=== PATIENT | male | born 1945 | race Two or more races ===

== ENCOUNTER 2022-08-13 17:17 | Inpatient (IN) | payer OTHER ==
[~2022-08-13] VITALS: Ht 162.6 cm; Wt 78.0 kg
[2022-08-13] MEDS ORDERED: ACYCLOVIR SOD 50MG/ML 800 MG in SODIUM CHL 0.9% 250 ML IV ONE ×2 (19:00→19:45)
[2022-08-13] MEDS ORDERED: MORPHINE SULFATE 4 MG/ML SYR/VIAL IV ONE (19:15)
[2022-08-13 19:37] LABS: Hematocrit 47.6 % (41.0-53.0); Hemoglobin 16.1 g/dL (13.5-17.5); Mean Corpuscular Hemoglobin 32.5 pg (28.0-32.0); Mean Corpuscular Hgb Conc. 33.9 g/dL (32.0-36.0); Mean Corpuscular Volume 95.7 fL (80.0-100.0); Red Blood Cells 4.97 10^6/uL (4.5-5.90); Red Cell Distribution Width 14.4 % (11.8-14.3); White Blood Cell 5.7 10^3/uL (4.4-10.8)
[2022-08-13 19:42] LABS: Basophils % (manual) 0 (0.0-2.0); Blast Cells 0; Metamyelocytes % 0; Myelocytes % 0; Promyelocytes % 0; Reactive Lymphocytes 0
[2022-08-13] MEDS ORDERED: HYDROcodone-ACET 5/325MG TAB PO PRN (19:45)
[2022-08-13] MEDS ORDERED: ONDANSETRON HCL 4 MG/2 ML VIAL IV PRN (19:45)
[2022-08-13] MEDS ORDERED: SODIUM CHLORIDE 0.9% 1,000 ML IV SCH (19:45)
[2022-08-13] MEDS ORDERED: ACETAMINOPHEN 325 MG TAB PO PRN (19:45)
[2022-08-13] MEDS ORDERED: PANTOPRAZOLE 40 MG/10 ML VIAL INJ IV ONE (19:45)
[2022-08-13 19:55] LABS: Albumin 4.1 g/dL (3.4-5.0); BUN/Creatinine Ratio 10.4; Calcium 8.9 mg/dL (8.5-10.1); Potassium 4.6 mmol/L (3.5-5.1)
[2022-08-13 19:58] LABS: Band Neutrophils % (manual) 16; Bilirubin, Total 0.3 mg/dL (0.2-1.0); Eosinophils % (manual) 18 (0-7); Lymphocytes % (manual) 16 (10.0-50.0); Monocytes % (manual) 5 (0-12); Total Protein 7.4 g/dL (6.4-8.2)
[2022-08-13] MEDS ORDERED: KETOROLAC TROMETH 30 MG/ML 1ML VIAL IV PRN (20:00)
[2022-08-13] MEDS ORDERED: MORPHINE SULFATE INJ 2 MG/ml SYRG IV PRN (20:00)
[2022-08-13] MEDS ORDERED: DEXTROSE (50%) 50ML SYRG IV PRN (20:15)
[2022-08-13 20:38] LABS: Cholesterol 163 mg/dL (< 200)
[2022-08-13 20:41] LABS: HDL Cholesterol 51 mg/dL (40-59); LDL Cholesterol 95 mg/dL (< 100); Triglycerides 157 mg/dL (< 150)
[2022-08-13] MEDS ORDERED: ACYCLOVIR SOD 50MG/ML 600 MG in SODIUM CHL 0.9% 250 ML IV SCH (22:00)
[2022-08-13] MEDS ORDERED: InsuLIN REG 1unit/0.01ml Soln (100units/ml) SC SCH (22:00)
[2022-08-13] MEDS ORDERED: ACCU-CHEK COMFORT CURVE STRIP VI SCH (22:00)
[2022-08-14] MEDS ORDERED: DEXTROSE (50%) 50ML SYRG IV PRN (02:00)
[2022-08-14] MEDS ORDERED: ACETAMINOPHEN 325 MG TAB PO PRN (02:00)
[2022-08-14] MEDS ORDERED: MORPHINE SULFATE INJ 2 MG/ml SYRG IV PRN (02:00)
[2022-08-14] MEDS ORDERED: ONDANSETRON HCL 4 MG/2 ML VIAL IV PRN (02:15)
[2022-08-14] MEDS ORDERED: ACYCLOVIR SOD 50MG/ML 600 MG in SODIUM CHL 0.9% 250 ML IV SCH ×2 (03:00→16:00)
[2022-08-14] MEDS ORDERED: MORPHINE SULFATE 4 MG/ML SYR/VIAL IV ONE (03:15)
[2022-08-14] MEDS: SODIUM CHLORIDE 0.9% 1,000 ML IV SCH ×4 (06:04→22:58)
[2022-08-14] MEDS: HYDROcodone-ACET 5/325MG TAB PO PRN ×3 (07:49→20:53)
[2022-08-14] MEDS: InsuLIN REG 1unit/0.01ml Soln (100units/ml) SC SCH ×4 (07:51→23:11)
[2022-08-14] MEDS: ACCU-CHEK COMFORT CURVE STRIP VI SCH ×4 (07:51→20:51)
[2022-08-14] MEDS: ENOXAPARIN SOD 40 MG/0.4 ML SYRINGE SC SCH (09:28)
[2022-08-14] MEDS ORDERED: PANTOPRAZOLE 40 MG/10 ML VIAL INJ IV SCH ×2 (10:00)
[2022-08-14] MEDS ORDERED: ENOXAPARIN SOD 40 MG/0.4 ML SYRINGE SC SCH (10:00)
[2022-08-14] MEDS ORDERED: BUSP5TAB51 PO (11:25)
[2022-08-14] MEDS ORDERED: LISI2.5T47 PO (11:25)
[2022-08-14] MEDS ORDERED: METF-929 PO (11:25)
[2022-08-14] MEDS ORDERED: PAR20T PO (11:25)
[2022-08-14] MEDS ORDERED: PRAV20TA3 PO ×2 (11:25→18:27)
[2022-08-14] MEDS ORDERED: CARB200T4 PO (11:25)
[2022-08-14] MEDS ORDERED: carBAMazepine 200 MG TAB PO ONE (13:00)
[2022-08-14] MEDS: GABAPENTIN 100 MG CAP PO SCH ×2 (15:28→20:40)
[2022-08-14] MEDS: ACYCLOVIR 400 MG TAB PO SCH ×3 (15:29→20:40)
[2022-08-14 17:35] VITALS: BP 127/77
[2022-08-14] MEDS ORDERED: ASPI-543 PO (18:24)
[2022-08-14] MEDS ORDERED: BUSP15TA60 PO (18:27)
[2022-08-14 18:57] VITALS: BP 128/77
[2022-08-14] MEDS: carBAMazepine 200 MG TAB PO SCH (20:40)
[2022-08-15 05:30] VITALS: BP 127/82
[2022-08-15] MEDS: SODIUM CHLORIDE 0.9% 1,000 ML IV SCH (06:25)
[2022-08-15] MEDS: ACCU-CHEK COMFORT CURVE STRIP VI SCH ×4 (06:42→22:05)
[2022-08-15] MEDS: ACYCLOVIR 400 MG TAB PO SCH ×5 (06:42→22:05)
[2022-08-15] MEDS: GABAPENTIN 100 MG CAP PO SCH ×3 (06:42→22:06)
[2022-08-15] MEDS: InsuLIN REG 1unit/0.01ml Soln (100units/ml) SC SCH ×4 (06:43→22:00)
[2022-08-15 09:00] VITALS: BP 125/74
[2022-08-15] MEDS: FAMOTIDINE 20 MG TAB PO SCH (10:23)
[2022-08-15] MEDS: PARoxetine 20 MG TAB PO SCH (10:23)
[2022-08-15] MEDS: carBAMazepine 200 MG TAB PO SCH ×2 (10:23→22:05)
[2022-08-15] MEDS: ENOXAPARIN SOD 40 MG/0.4 ML SYRINGE SC SCH (10:24)
[2022-08-15] MEDS: HYDROcodone-ACET 5/325MG TAB PO PRN ×3 (11:28→22:06)
[2022-08-15 13:00] VITALS: BP 134/77
[2022-08-15 16:43] VITALS: BP 136/73
[2022-08-15 22:03] VITALS: BP 137/80
[2022-08-16] MEDS: GABAPENTIN 100 MG CAP PO SCH (05:16)
[2022-08-16] MEDS: ACYCLOVIR 400 MG TAB PO SCH ×2 (05:16→09:49)
[2022-08-16 05:21] VITALS: BP 130/57
[2022-08-16] MEDS: InsuLIN REG 1unit/0.01ml Soln (100units/ml) SC SCH (06:26)
[2022-08-16] MEDS: ACCU-CHEK COMFORT CURVE STRIP VI SCH (06:26)
[2022-08-16 09:00] VITALS: BP 144/84
[2022-08-16] MEDS ORDERED: HYDR-4902 PO ×2 (09:46→10:31)
[2022-08-16] MEDS ORDERED: GABA300C10 PO ×2 (09:46→10:30)
[2022-08-16] MEDS ORDERED: ACYC-163 PO ×2 (09:46→10:30)
[2022-08-16] MEDS: ENOXAPARIN SOD 40 MG/0.4 ML SYRINGE SC SCH (09:48)
[2022-08-16] MEDS: carBAMazepine 200 MG TAB PO SCH (09:49)
[2022-08-16] MEDS: PARoxetine 20 MG TAB PO SCH (09:49)
[2022-08-16] MEDS: FAMOTIDINE 20 MG TAB PO SCH (09:49)
[2022-08-16 11:27] VITALS: BP 144/84
== END 2022-08-16 12:56 | disposition home or self-care (01) | DRG 125 ==
LOC: ER 17:17 → OVERFLOW 19:46 → UNDOADMIN 19:46 → OVERFLOW 20:55 → WEST WING 08-14 14:53 → OVERFLOW 08-14 15:35 → CENTRAL 08-14 17:44
PROVIDERS: ADMIT Nurse Practitioner Family; ATTEND Hospitalist
DX: B02.30 Zoster ocular disease, unspecified (principal); E11.9 Type 2 diabetes mellitus without complications; G40.409 Other generalized epilepsy and epileptic syndromes, not intractable, without status epilepticus; I10 Essential (primary) hypertension; F17.200 Nicotine dependence, unspecified, uncomplicated; Z79.899 Other long term (current) drug therapy; Z82.49 Family history of ischemic heart disease and other diseases of the circulatory system; Z83.3 Family history of diabetes mellitus; Z90.49 Acquired absence of other specified parts of digestive tract
CPT/HCPCS: 36415; 70540; 70551; 80053; 80061; 82962; 83036; 84443; 85007; 85027; 87426; 96365; 96375; C9113; G0378; J1815; J2405